=== PATIENT | female | born 1980 | race Caucasian/White ===

== ENCOUNTER 2017-11-27 21:18 | Emergency (ER) | payer OTHER ==
[~2017-11-27] VITALS: Ht 170.2 cm; Wt 117.9 kg
[~2017-11-27 21:18] MED LIST: ALBU90OI INH; AZIT250 PO; Augmentin 875-1 EACH PO; Ciprodex Otic7.5 ML BOTHEARS; DIAZ5; DIAZ5 PO; Dicyclomine HCl20 MG; GUAI120S1 PO; GUAIFENESIN1200 MG PO; HYDACE5 PO; HYDCHL12.5; HYDCHL12.5 PO; IBUP600 PO; Imitrex100 MG; LEVO-T200 MCG PO; LEVO750 PO; LEVSOD75 PO; Monodox100 MG PO; NAPR500EC PO; NEOPOLHCSU LEFTEAR; Norco 5-325 Ta1 EACH PO; OXYACE5T PO; OXYC10ER PO; Omeprazole20 M1 PO; PARO10; PARO20 PO; PROM25 PO; PSEU120ER PO; Percocet 5-3251 EACH PO; Phentermine HCl15 MG; Prednisone20 MG PO; SILSUL1TC TOP; SPACE CHAMBER1 EACH MC; Ultram50 MG PO; Zofran Odt4 MG SL
[2017-11-27 21:46] LABS: Source, Urine Clean Catch
[2017-11-27 21:49] LABS: Bilirubin, Urine Neg (Neg); Blood, Urine Neg (Neg); Glucose Qualitative, Urine Neg (Neg); Ketones, Urine Neg (Neg); Leukocyte Esterase, Urine 1+ (Neg); Nitrite, Urine Neg (Neg); Protein, Urine Neg (Neg); Specific Gravity, Urine 1.015 (1.003-1.022); Urobilinogen, Urine NORM (Normal); pH, Urine 6.5 (5.0-8.0)
[2017-11-27 21:54] LABS: Appearance, Urine Clear (Clear); Color, Urine Yellow (P-Yellow)
[2017-11-27 21:57] LABS: Bacteria Not Seen /hpf; Red Blood Cells, Urine Not Seen /hpf (0-2); Squamous Epithelial Cells Not Seen /hpf (Few); White Blood Cells, Urine Not Seen /hpf (0-5)
[2017-11-27 22:10] LABS: BASOPHILS ABSOLUTE AUTO 0.04 K/mm3 (0.00-0.23); BASOPHILS PERCENT AUTO 1 % (0-2); EOSINOPHILS ABSOLUTE AUTO 0.22 K/mm3 (0.00-0.68); EOSINOPHILS PERCENT AUTO 3 % (0-6); Hematocrit 40.9 % (33.0-51.0); Hemoglobin 13.6 g/dL (11.5-16.0); IMMATURE GRAN ABSOLUTE AUTO 0.07 K/mm3 (0.00-0.10); IMMATURE GRAN PERCENT AUTO 1 % (0-1); LYMPHOCYTES ABSOLUTE AUTO 2.45 K/mm3 (0.84-5.20); LYMPHOCYTES PERCENT AUTO 28 % (21-46); MONOCYTES ABSOLUTE AUTO 0.58 K/mm3 (0.16-1.47); MONOCYTES PERCENT AUTO 7 % (4-13); Mean Corpuscular HGB 33.6 pg (26.0-34.0); Mean Corpuscular HGB Conc 33.3 g/dL (31.5-36.5); Mean Corpuscular Volume 101 fL (80-100); Mean Platelet Volume 9.6 fL (9.1-12.4); NEUTROPHILS ABSOLUTE AUTO 5.41 K/mm3 (1.96-9.15); NEUTROPHILS PERCENT AUTO 62 % (41-73); Platelet Count 295 K/mm3 (150-400); RDW Coefficient Variation 12.3 % (11.7-14.2); RDW Standard Deviation 46.3 fL (35.1-46.3); Red Blood Cell Count 4.05 M/mm3 (3.80-5.20); White Blood Cell Count 8.77 K/mm3 (4.00-11.30)
[2017-11-27 22:31] LABS: Alanine Aminotransfer (ALT/SGP 22 U/L (12-78); Albumin, Blood 3.9 g/dL (3.4-5.0); Albumin/Globulin Ratio 1.1 (0.8-1.8); Alk Phos 71 U/L (50-136); Anion Gap 6 mmol/L (6-16); Aspartate Aminotrans (AST/SGOT 11 U/L (12-37); Bilirubin, Total 0.2 mg/dL (0.1-1.0); Blood Urea Nitrogen 13 mg/dL (8-24); Bun/Creatinine Ratio 16.9 (12.0-20.0); CO2, Blood 28 mmol/L (21-32); Calcium, Blood 8.9 mg/dL (8.5-10.1); Chloride, Blood 105 mmol/L (98-108); Creatinine, Blood 0.77 mg/dL (0.40-1.00); Globulin, Blood 3.7 g/dL (2.2-4.0); Glomerular Filtration Rate >60 (60-); Glucose, Blood 86 mg/dL (70-99); Potassium, Blood 3.9 mmol/L (3.5-5.5); Sodium, Blood 139 mmol/L (136-145); Total Protein, Blood 7.6 g/dL (6.4-8.2)
[2017-11-27 22:42] LABS: Beta HCG, Quantitative, Serum 8357 mIU/mL (0-3)
[2017-11-27] MEDS ORDERED: PROM25 PO (23:53)
[2017-11-27] MEDS ORDERED: ONDA4ODT MM (23:53)
[2018-03-07] MEDS ORDERED: Percocet 5-3251 EACH PO (15:43)
[2018-03-07] MEDS ORDERED: IBUP400 PO (15:43)
== END 2017-11-28 00:55 | disposition home or self-care (01) ==
LOC: ER 21:18
PROVIDERS: Emergency Medicine
DX: O20.0 Threatened abortion (principal); Z88.8 Allergy status to other drugs, medicaments and biological substances; Z88.5 Allergy status to narcotic agent; Z79.899 Other long term (current) drug therapy; Z79.2 Long term (current) use of antibiotics; Z87.891 Personal history of nicotine dependence; E03.9 Hypothyroidism, unspecified; Z3A.01 Less than 8 weeks gestation of pregnancy
CPT/HCPCS: 76801; 76817; 80053; 81001; 84702; 85025; 86900; 86901; 87086; 99284

== ENCOUNTER → 2018-01-08 | Outpatient (CLI) | payer OTHER ==
[~2018-01-08] MED LIST changes: +ONDA4ODT MM
[2018-01-10 12:10] LABS: HPV Genotype 16 Not Detected (NOTDET); HPV Genotype 18 Not Detected (NOTDET)
[2018-01-14 13:59] LABS: HPV High Risk Other Not Detected (NOTDET)
== END | disposition home or self-care (01) ==
LOC: LAB 10:09 → LAB SHORT 10:09
PROVIDERS: Obstetrics & Gynecology
DX: Z34.81 Encounter for supervision of other normal pregnancy, first trimester (principal)
CPT/HCPCS: 87624; G0123

== ENCOUNTER 2018-01-13 06:33 | Day surgery (SDC) | payer OTHER ==
[~2018-01-13] VITALS: Ht 170.2 cm; Wt 118.4 kg
[2018-01-13 07:15] LABS: BASOPHILS ABSOLUTE AUTO 0.02 K/mm3 (0.00-0.23); BASOPHILS PERCENT AUTO 0 % (0-2); EOSINOPHILS ABSOLUTE AUTO 0.32 K/mm3 (0.00-0.68); EOSINOPHILS PERCENT AUTO 4 % (0-6); Hematocrit 36.6 % (33.0-51.0); Hemoglobin 12.7 g/dL (11.5-16.0); IMMATURE GRAN ABSOLUTE AUTO 0.03 K/mm3 (0.00-0.10); IMMATURE GRAN PERCENT AUTO 0 % (0-1); LYMPHOCYTES PERCENT AUTO 25 % (21-46); MONOCYTES ABSOLUTE AUTO 0.55 K/mm3 (0.16-1.47); MONOCYTES PERCENT AUTO 6 % (4-13); Mean Corpuscular HGB 33.4 pg (26.0-34.0); Mean Corpuscular HGB Conc 34.7 g/dL (31.5-36.5); Mean Corpuscular Volume 96 fL (80-100); NEUTROPHILS ABSOLUTE AUTO 5.83 K/mm3 (1.96-9.15); NEUTROPHILS PERCENT AUTO 65 % (41-73); Platelet Count 270 K/mm3 (150-400); RDW Coefficient Variation 11.5 % (11.7-14.2); RDW Standard Deviation 40.6 fL (35.1-46.3); White Blood Cell Count 9.05 K/mm3 (4.00-11.30)
[2018-01-13 07:44] LABS: Anion Gap 8 mmol/L (6-16); Blood Urea Nitrogen 10 mg/dL (8-24); Bun/Creatinine Ratio 15.4 (12.0-20.0); CO2, Blood 24 mmol/L (21-32); Calcium, Blood 8.4 mg/dL (8.5-10.1); Chloride, Blood 107 mmol/L (98-108); Creatinine, Blood 0.65 mg/dL (0.40-1.00); Glomerular Filtration Rate >60 (60-); Glucose, Blood 93 mg/dL (70-99); Potassium, Blood 3.9 mmol/L (3.5-5.5); Sodium, Blood 139 mmol/L (136-145)
[2018-01-13 08:07] LABS: Beta HCG, Quantitative, Serum 1724 mIU/mL (0-3)
== END 2018-01-13 14:30 | disposition home or self-care (01) ==
LOC: ER 06:33 → ORSCMMR 10:05 → SURS 10:06 → ORSCMMR 10:06 → SURS 10:10 → ER 10:10 → SURS 14:30 → ORSCMMR 14:30
PROVIDERS: Emergency Medicine; Obstetrics & Gynecology
PROC: 10D17ZZ Extraction of Products of Conception, Retained, Via Natural or Artificial Opening (ICD-10-PCS; principal; 2018-01-13 11:00)
DX: O02.1 Missed abortion (principal); E03.9 Hypothyroidism, unspecified; Z87.891 Personal history of nicotine dependence; Z79.899 Other long term (current) drug therapy
CPT/HCPCS: 36415; 76830; 76856; 80048; 84702; 85025; 86850; 86900; 86901; 88305; 96374; 96375; 96376; 99285; J0330; J0690; J1100; J1885; J2210; J2250; J2405; J3010; J7120

== ENCOUNTER 2018-03-04 12:52 | Emergency (ER) | payer OTHER ==
[~2018-03-04] VITALS: Ht 170.2 cm; Wt 118.8 kg
[2018-03-04] MEDS ORDERED: IBUP400 PO (13:16)
[2018-03-04 13:40] LABS: BASOPHILS ABSOLUTE AUTO 0.06 K/mm3 (0.00-0.23); BASOPHILS PERCENT AUTO 1 % (0-2); EOSINOPHILS ABSOLUTE AUTO 0.26 K/mm3 (0.00-0.68); EOSINOPHILS PERCENT AUTO 3 % (0-6); Hemoglobin 13.4 g/dL (11.5-16.0); IMMATURE GRAN ABSOLUTE AUTO 0.04 K/mm3 (0.00-0.10); IMMATURE GRAN PERCENT AUTO 0 % (0-1); LYMPHOCYTES ABSOLUTE AUTO 1.89 K/mm3 (0.84-5.20); LYMPHOCYTES PERCENT AUTO 20 % (21-46); MONOCYTES ABSOLUTE AUTO 0.55 K/mm3 (0.16-1.47); MONOCYTES PERCENT AUTO 6 % (4-13); Mean Corpuscular HGB 30.3 pg (26.0-34.0); Mean Corpuscular HGB Conc 31.9 g/dL (31.5-36.5); Mean Corpuscular Volume 95 fL (80-100); NEUTROPHILS ABSOLUTE AUTO 6.66 K/mm3 (1.96-9.15); NEUTROPHILS PERCENT AUTO 71 % (41-73); Platelet Count 291 K/mm3 (150-400); RDW Coefficient Variation 13.1 % (11.7-14.2); RDW Standard Deviation 45.6 fL (35.1-46.3); Red Blood Cell Count 4.42 M/mm3 (3.80-5.20); White Blood Cell Count 9.46 K/mm3 (4.00-11.30)
[2018-03-04] MEDS ORDERED: Monodox100 MG PO (15:38)
[2018-03-04] MEDS ORDERED: CEPH500 PO (15:38)
[2018-03-04] MEDS ORDERED: Synthroid200 MCG PO (15:39)
[2018-03-04] MEDS ORDERED: Norco 5-325 Ta1 EACH PO (15:39)
[2018-03-04 16:41] LABS: Alanine Aminotransfer (ALT/SGP 27 U/L (12-78); Albumin, Blood 3.9 g/dL (3.4-5.0); Alk Phos 102 U/L (50-136); Anion Gap 12 mmol/L (6-16); Aspartate Aminotrans (AST/SGOT 15 U/L (12-37); Bilirubin, Total 0.5 mg/dL (0.1-1.0); Blood Urea Nitrogen 10 mg/dL (8-24); Bun/Creatinine Ratio 12.2 (12.0-20.0); CO2, Blood 23 mmol/L (21-32); Calcium, Blood 8.9 mg/dL (8.5-10.1); Chloride, Blood 106 mmol/L (98-108); Creatinine, Blood 0.82 mg/dL (0.40-1.00); Glomerular Filtration Rate >60 (60-); Glucose, Blood 87 mg/dL (70-99); Sodium, Blood 141 mmol/L (136-145); Total Protein, Blood 7.9 g/dL (6.4-8.2)
[2018-03-07] MEDS ORDERED: Percocet 5-3251 EACH PO (15:43)
[2018-03-07] MEDS ORDERED: IBUP400 PO (15:43)
== END 2018-03-04 16:04 | disposition home or self-care (01) ==
LOC: ER 12:52
PROVIDERS: Physician Assistant
DX: L03.115 Cellulitis of right lower limb (principal); E03.9 Hypothyroidism, unspecified; L97.219 Non-pressure chronic ulcer of right calf with unspecified severity; F17.200 Nicotine dependence, unspecified, uncomplicated; Z88.8 Allergy status to other drugs, medicaments and biological substances; Z88.5 Allergy status to narcotic agent; Z79.899 Other long term (current) drug therapy; Z87.442 Personal history of urinary calculi
CPT/HCPCS: 36415; 80053; 83605; 84443; 84703; 85025; 96365; 96375; 99284; J1885; J2543

== ENCOUNTER 2018-03-08 00:55 | Emergency (ER) | payer OTHER ==
[~2018-03-08] VITALS: Ht 170.2 cm; Wt 118.8 kg
[~2018-03-08 00:55] MED LIST changes: +CEPH500 PO; +IBUP400 PO; +Synthroid200 MCG PO
== END 2018-03-08 04:20 | disposition home or self-care (01) ==
LOC: ER 00:55
DX: L02.415 Cutaneous abscess of right lower limb (principal); L03.115 Cellulitis of right lower limb; E03.9 Hypothyroidism, unspecified; F17.200 Nicotine dependence, unspecified, uncomplicated; Z88.8 Allergy status to other drugs, medicaments and biological substances; Z88.5 Allergy status to narcotic agent; Z79.899 Other long term (current) drug therapy; Z87.442 Personal history of urinary calculi
CPT/HCPCS: 99281; J3370; J7050

== ENCOUNTER 2018-03-08 11:15 | Day surgery (SDC) | payer OTHER | END 2018-03-08 22:40 | disposition home or self-care (01) | LOC: ATC 11:15 | DX: L03.115 Cellulitis of right lower limb (principal); E03.9 Hypothyroidism, unspecified | CPT/HCPCS: J3370; J7050 ==

== ENCOUNTER 2018-03-28 12:01 | Emergency (ER) | payer OTHER ==
[~2018-03-28] VITALS: Ht 170.2 cm; Wt 117.0 kg
[2018-03-28 12:48] LABS: BASOPHILS ABSOLUTE AUTO 0.02 K/mm3 (0.00-0.23); BASOPHILS PERCENT AUTO 0 % (0-2); EOSINOPHILS ABSOLUTE AUTO 0.11 K/mm3 (0.00-0.68); EOSINOPHILS PERCENT AUTO 1 % (0-6); Hematocrit 40.4 % (33.0-51.0); Hemoglobin 12.9 g/dL (11.5-16.0); IMMATURE GRAN ABSOLUTE AUTO 0.03 K/mm3 (0.00-0.10); IMMATURE GRAN PERCENT AUTO 0 % (0-1); LYMPHOCYTES ABSOLUTE AUTO 1.01 K/mm3 (0.84-5.20); LYMPHOCYTES PERCENT AUTO 10 % (21-46); MONOCYTES ABSOLUTE AUTO 0.63 K/mm3 (0.16-1.47); MONOCYTES PERCENT AUTO 6 % (4-13); Mean Corpuscular HGB 29.5 pg (26.0-34.0); Mean Corpuscular HGB Conc 31.9 g/dL (31.5-36.5); Mean Corpuscular Volume 92 fL (80-100); Mean Platelet Volume 10.3 fL (9.1-12.4); NEUTROPHILS PERCENT AUTO 83 % (41-73); Platelet Count 279 K/mm3 (150-400); RDW Coefficient Variation 13.2 % (11.7-14.2); Red Blood Cell Count 4.38 M/mm3 (3.80-5.20)
[2018-03-28 13:09] LABS: Alanine Aminotransfer (ALT/SGP 20 U/L (12-78); Albumin, Blood 3.7 g/dL (3.4-5.0); Albumin/Globulin Ratio 0.9 (0.8-1.8); Alk Phos 109 U/L (50-136); Anion Gap 8 mmol/L (6-16); Aspartate Aminotrans (AST/SGOT 15 U/L (12-37); Bilirubin, Total 0.6 mg/dL (0.1-1.0); Blood Urea Nitrogen 8 mg/dL (8-24); Bun/Creatinine Ratio 9.5 (12.0-20.0); CO2, Blood 24 mmol/L (21-32); Calcium, Blood 8.2 mg/dL (8.5-10.1); Chloride, Blood 107 mmol/L (98-108); Creatinine, Blood 0.84 mg/dL (0.40-1.00); Globulin, Blood 3.9 g/dL (2.2-4.0); Glomerular Filtration Rate >60 (60-); Glucose, Blood 87 mg/dL (70-99); Potassium, Blood 3.7 mmol/L (3.5-5.5); Sodium, Blood 139 mmol/L (136-145); Total Protein, Blood 7.6 g/dL (6.4-8.2)
[2018-03-28] MEDS ORDERED: Bactrim Ds Tab1 EACH PO (15:23)
[2018-03-28] MEDS ORDERED: CEPH500 PO (15:23)
== END 2018-03-28 15:30 | disposition home or self-care (01) ==
LOC: ER 12:01
PROVIDERS: Emergency Medicine
DX: L03.115 Cellulitis of right lower limb (principal); E03.9 Hypothyroidism, unspecified; F17.200 Nicotine dependence, unspecified, uncomplicated; Z88.8 Allergy status to other drugs, medicaments and biological substances; Z88.5 Allergy status to narcotic agent; Z79.899 Other long term (current) drug therapy
CPT/HCPCS: 36415; 80053; 85025; 96365; 99283-25; J0690; J7030

== ENCOUNTER 2018-10-27 10:52 | Emergency (ER) | payer OTHER ==
[~2018-10-27] VITALS: Ht 170.2 cm; Wt 105.2 kg
[~2018-10-27 10:52] MED LIST changes: +Bactrim Ds Tab1 EACH PO
[2018-10-27] MEDS ORDERED: Amoxicillin500 MG PO (13:07)
[2018-10-27] MEDS ORDERED: Floxin10 ML RIGHTEAR (13:07)
== END 2018-10-27 13:20 | disposition home or self-care (01) ==
LOC: ER 10:52
DX: H60.91 Unspecified otitis externa, right ear (principal); E03.9 Hypothyroidism, unspecified; Z88.8 Allergy status to other drugs, medicaments and biological substances; Z88.5 Allergy status to narcotic agent; Z87.442 Personal history of urinary calculi; Z87.891 Personal history of nicotine dependence
CPT/HCPCS: 99282

== ENCOUNTER 2020-04-11 15:16 | Emergency (ER) | payer SELFPAY ==
[~2020-04-11] VITALS: Ht 170.2 cm; Wt 114.3 kg
[~2020-04-11 15:16] MED LIST changes: +Amoxicillin500 MG PO; +Floxin10 ML RIGHTEAR
[2020-04-11] MEDS ORDERED: CEPH500 PO (16:59)
[2020-04-11] MEDS ORDERED: Monodox100 MG PO (16:59)
[2020-04-11] MEDS ORDERED: HYDR1TAB94 PO (16:59)
[2020-04-11] MEDS ORDERED: IBUP800 PO (16:59)
== END 2020-04-11 17:11 | disposition home or self-care (01) ==
LOC: ER 15:16
DX: L03.115 Cellulitis of right lower limb (principal); Z88.5 Allergy status to narcotic agent; Z88.8 Allergy status to other drugs, medicaments and biological substances; Z79.2 Long term (current) use of antibiotics; E03.9 Hypothyroidism, unspecified; M79.7 Fibromyalgia; Z87.891 Personal history of nicotine dependence
CPT/HCPCS: 99282

== ENCOUNTER 2020-05-09 10:24 | Emergency (ER) | payer SELFPAY ==
[~2020-05-09] VITALS: Ht 170.2 cm; Wt 114.3 kg
[~2020-05-09 10:24] MED LIST changes: +HYDR1TAB94 PO; +IBUP800 PO
[2020-05-09] MEDS ORDERED: MONDOXYNE NL100 MG PO (12:21)
[2020-05-09] MEDS ORDERED: CEPH500 PO (12:21)
[2020-05-09] MEDS ORDERED: Norco 5-325 Ta1 EACH PO (12:37)
== END 2020-05-09 12:50 | disposition home or self-care (01) ==
LOC: ER 10:24
DX: L03.116 Cellulitis of left lower limb (principal); Z88.5 Allergy status to narcotic agent; Z88.8 Allergy status to other drugs, medicaments and biological substances; Z79.82 Long term (current) use of aspirin; E03.9 Hypothyroidism, unspecified; M79.7 Fibromyalgia; Z87.891 Personal history of nicotine dependence
CPT/HCPCS: 99283; J1100

== ENCOUNTER 2022-09-26 12:07 | Emergency (ER) | payer OTHER ==
[~2022-09-26] VITALS: Ht 170.2 cm; Wt 113.4 kg
[~2022-09-26 12:07] MED LIST changes: +MONDOXYNE NL100 MG PO
[2022-09-26] MEDS ORDERED: CODEINE-GUAIFE120 M1 PO (12:39)
[2022-09-26] MEDS ORDERED: CLIN300 PO (12:39)
[2022-09-26 13:24] LABS: Influenza A, PCR NEGATIVE (NEGATIVE); Influenza B, PCR NEGATIVE (NEGATIVE); Resp Syncytial Virus, PCR NEGATIVE (NEGATIVE); SARS-Cov-2 (COVID-19) PCR, MMC NEGATIVE (NEGATIVE)
== END 2022-09-26 12:40 | disposition home or self-care (01) ==
LOC: ER 12:07
PROVIDERS: Physician Assistant
DX: R05.9 Cough, unspecified (principal); H66.92 Otitis media, unspecified, left ear; Z20.822 Contact with and (suspected) exposure to COVID-19; Z88.5 Allergy status to narcotic agent; Z88.8 Allergy status to other drugs, medicaments and biological substances; Z79.899 Other long term (current) drug therapy; E03.9 Hypothyroidism, unspecified; Z87.891 Personal history of nicotine dependence
CPT/HCPCS: 0241U